=== PATIENT | female | born 1975 | race Caucasian/White ===

== ENCOUNTER 2017-06-07 13:51 | Emergency (ER) | payer OTHER ==
[2017-06-07] MEDS ORDERED: RX INFO: IV CONTRAST WAS GIVEN 1 EACH MISC MISCELLANE PRN (14:00)
[2017-06-07 14:02] LABS: Glucose,Whole Blood 100 mg/dL (75-99)
[2017-06-07 14:20] LABS: Basophils # (A) 0.1 k/uL (0-0.2); Basophils % (A) 0 %; CH 30.5; CHCM 34.7; Eosinophils # (A) 0.2 k/uL (0-0.7); Eosinophils % (A) 1 %; HCT 40.4 % (34.0-46.0); HDW 2.33; HGB 14.1 gm/dL (11.4-16.0); Luc # (Auto) 0.14; Luc % (Auto) 1; Lymphocytes # (A) 1.5 k/uL (1.0-4.8); Lymphocytes % (A) 13 %; MCH 30.9 pg (25.0-35.0); MCV 88.2 fL (80.0-100.0); Mean Platelet Volume 8.2; Monocytes # (A) 0.6 k/uL (0-1.0); Monocytes % (A) 5 %; Neutrophils # (A) 9.3 k/uL (1.3-7.7); Neutrophils % (A) 79 %; RBC 4.58 m/uL (3.80-5.40); RDW 12.5 % (11.5-15.5); WBC 11.8 k/uL (3.8-10.6); WBC (Perox) 11.76
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
[2017-06-07 14:28] LABS: INR 0.9 (<1.2); Prothrombin Time 9.6 sec (9.0-12.0)
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
[2017-06-07 14:32] LABS: ALT 31 U/L (9-52); AST 24 U/L (14-36); Alcohol <10 mg/dL; Alkaline Phosphatase 63 U/L (38-126); Amylase 39 U/L (30-110); Anion Gap 6 mmol/L; Blood Urea Nitrogen 9 mg/dL (7-17); Calcium 8.8 mg/dL (8.4-10.2); Carbon Dioxide 27 mmol/L (22-30); Chloride 105 mmol/L (98-107); Glucose 93 mg/dL (74-99); Non-African American GFR(MDRD) >60 (>60 ml/min/1.73 sqM); Potassium 4.1 mmol/L (3.5-5.1); Sodium 138 mmol/L (137-145); Total Bilirubin 0.2 mg/dL (0.2-1.3); Total Protein 6.1 g/dL (6.3-8.2)
[2017-06-07 14:35] LABS: Partial Thromboplastin Time 20.1 sec (22.0-30.0)
[2017-06-07] MEDS ORDERED: HYDROmorphone 1 MG/ML 1 ML SYRINGE IVP STA (14:35)
[2017-06-07 14:43] LABS: Creatine Kinase 83 U/L (30-135)
[2017-06-07 14:48] LABS: Appearance,Urine Clear (Clear); Bilirubin,Urine Negative (Negative); Glucose,Urine (UA) Negative (Negative); Ketones,Urine Negative (Negative); Leukocyte Esterase,Urine Negative (Negative); Nitrite,Urine Negative (Negative); Protein,Urine Negative (Negative); Specific Gravity,Urine 1.006 (1.001-1.035); UA Billing (MACRO vs. MICRO) CHEM; Urobilinogen,Urine <2.0 mg/dL (<2.0)
[2017-06-07 14:57] LABS: Creatine Kinase MB 2.1 ng/mL (0.0-2.4); Troponin I <0.012 ng/mL (0.000-0.034)
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
[2017-06-07] MEDS ORDERED: DIAZEPAM 5 MG/ML 2 ML SYRINGE IVP STA (16:00)
[2017-06-07 16:07] VITALS: BP 107/62; PULSE 83; RESP 16
== END 2017-06-07 17:39 | disposition home or self-care (01) ==
LOC: SUPCPDRO 13:51 → EC 13:51
DX: S71.132A Puncture wound without foreign body, left thigh, initial encounter (principal); S09.90XA Unspecified injury of head, initial encounter; M19.90 Unspecified osteoarthritis, unspecified site; F32.9 Major depressive disorder, single episode, unspecified; F41.9 Anxiety disorder, unspecified; F17.200 Nicotine dependence, unspecified, uncomplicated; Z79.899 Other long term (current) drug therapy; Z88.6 Allergy status to analgesic agent; Z88.8 Allergy status to other drugs, medicaments and biological substances; V86.59XA Driver of other special all-terrain or other off-road motor vehicle injured in nontraffic accident, initial encounter
CPT/HCPCS: 36415; 93005; 86900; 86901; 80053; 82150; 82550; 82553; 83605; 83690; 84484; 85025; 85610; 85730; 86850; 81003; 81025; 80306; 80320; 71010; 72170; 72125; 70450; 71260; 74177; 73701; 99285; 12002; 96374; 96375; J3360; J1170; Q9967

== ENCOUNTER → 2019-07-31 | Outpatient (CLI) | payer OTHER ==
--- NOTE | 2019-08-01 16:47 | CT ---
EXAMINATION TYPE: CT abdomen pelvis w con DATE OF EXAM: 07/31/2019 COMPARISON: 06/07/2017 HISTORY: Abdominal pain CT DLP: 499.3 mGycm Automated exposure control for dose reduction was used. TECHNIQUE: Helical acquisition of images was performed from the lung bases through the pelvis. CONTRAST: Performed with Oral Contrast and with IV Contrast, patient injected with 100 mL of Isovue 300. FINDINGS: There is a patchy nodular infiltrate in the right lower lobe. Superior extent of the infiltrate is no t demonstrated. Left lung bases clear. There is no pleural effusion. There is mild hiatal hernia. The re is no pericardial effusion. Liver and spleen appear normal. Bile ducts are not dilated. There is no pancreatic mass. Gallbladder appears normal. There is no adrenal mass. Kidneys show satisfactory contrast opacification. There is no hydronephrosis. Bladder distends smoothly. There is no inguinal hernia. Uterus is anteverted. Ther e is no free fluid in the pelvis. There is no evidence of a bowel obstruction. There is no intestinal wall thickening. Lumbar vertebra have normal spacing and alignment. There is no compression fracture. Bony pelvis appe ars normal. Hip joint spaces are normal. There is no mesenteric edema. There is no ascites or free ai r. Appendix is not seen. There is no sign of thickened appendix. There is apparent surgical clip rela kasandra to appendectomy. IMPRESSION: THERE IS MODERATE PATCHY NODULAR INFILTRATE RIGHT LOWER LOBE LIKELY RELATED TO INFLAMMATORY DISEASE T HAT IS A CHANGE COMPARED TO OLD EXAM. NO ACUTE ABNORMALITY WITHIN THE ABDOMEN PELVIS.
== END ==
LOC: RADCTMAIN 09:16
PROVIDERS: ATTEND Family Medicine
DX: R10.84 Generalized abdominal pain (principal); R10.2 Pelvic and perineal pain; R91.8 Other nonspecific abnormal finding of lung field
CPT/HCPCS: 74177; Q9967 ×2

== ENCOUNTER 2020-08-16 09:38 | Day surgery (SDC) | payer OTHER ==
[2020-08-11 14:54] VITALS: BMI 28.6
[~2020-08-16 09:38] MED LIST: LACTATED RINGERS 1,000 ML IV SCH; LIDOCAINE 1% (10MG/ML) FOR IV START INTRADERMA PRN
[2020-08-16 10:17] VITALS: RESP 16; TEMP 97.4
[2020-08-16] MEDS ORDERED: PROPOFOL 10 MG/ML 20 ML VIAL IV ONE (10:31)
--- NOTE | 2020-08-16 10:43 | P.PCN ---
Date of Procedure: 08/16/20 Procedure(s) Performed: BRIEF HISTORY: Patient is a 45-year-old, pleasant, white female scheduled for evaluation of GERD and Bee's esophagus. Her last upper endoscopy was done 3 years ago at [facility]. She is maintained on Prilosec and famotidine for her reflux symptoms PROCEDURE PERFORMED: Esophagogastroduodenoscopy with biopsy. PREOPERATIVE DIAGNOSIS: GERD /Bee's esophagus. IV sedation per anesthesia. PROCEDURE: After informed consent was obtained, the patient was brought into the endoscopy unit. IV sedation was administered by Anesthesia under continuous monitoring. Initially the Olympus GIF-140 video endoscope was inserted into the mouth. Esophagus intubated without any difficulty. It was gradually advanced into the stomach and duodenum and carefully examined. The bulb and the second part of the duodenum appeared normal. The scope at this time was withdrawn to the stomach, adequately insufflated with air, and upon careful examination, mucosa of the antrum, body, cardia and the fundus appeared normal. The scope was then withdrawn into the esophagus. Moderate size hiatal hernia noted. The The GE junction was located at 34 cm from the incisors. There was a 1 cm of Bee's appearing mucosa extending across the GE junction was biopsied. The rest of the esophagus appeared normal. There were no erosions or ulcerations seen and the patient tolerated the procedure well. IMPRESSION: 1. 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 2. Moderate size hiatal hernia. RECOMMENDATIONS: The findings of this examination were discussed with the patient as well as a family. She was advised to follow with the biopsy results. She will continue with omeprazole 20 mg daily and Pepcid at bedtime. If the biopsy is Bee's esophagus he can have a repeat upper endoscopy in 2-3.
[2020-08-16 11:12] VITALS: BP 121/77; PULSE 81
== END 2020-08-16 11:25 | disposition home or self-care (01) ==
LOC: ORWHC2ENDO 09:38
PROVIDERS: ATTEND Internal Medicine Gastroenterology
DX: K21.00 Gastro-esophageal reflux disease with esophagitis, without bleeding (principal); K44.9 Diaphragmatic hernia without obstruction or gangrene; K22.70 Barrett's esophagus without dysplasia; Z79.899 Other long term (current) drug therapy; E78.5 Hyperlipidemia, unspecified; F17.210 Nicotine dependence, cigarettes, uncomplicated; Z79.891 Long term (current) use of opiate analgesic; Z98.51 Tubal ligation status; Z98.890 Other specified postprocedural states; Z97.2 Presence of dental prosthetic device (complete) (partial); Z88.6 Allergy status to analgesic agent; Z88.8 Allergy status to other drugs, medicaments and biological substances
CPT/HCPCS: 81025; 88305; 43239; J2704

== ENCOUNTER 2021-01-20 16:01 | Emergency (ER) | payer OTHER ==
[2021-01-20 16:13] VITALS: BP 100/62; PULSE 89; RESP 17; TEMP 98
--- NOTE | 2021-01-20 16:51 | ED ---
Lower Extremity Injury HPI - General Chief Complaint: Extremity Injury, Lower Stated Complaint: RT foot pain (fall) Time Seen by Provider: 01/20/21 16:16 Source: patient, family, RN notes reviewed Mode of arrival: ambulatory Limitations: no limitations - History of Present Illness Initial Comments: This a 45-year-old female presents emergency Department with chief complaint of right foot pain. Patient states that she fever off-and-on 60 days ago but states that she twisted it today. Patient complains of distal foot pain. Patient states he is mild redness and swelling. Denies any fevers or chills. No complaints paresthesias no other complaints this time. - Related Data Home Medications Medication Instructions Recorded Confirmed traMADol HCl [Ultram] 50 mg PO TID 06/07/17 08/16/20 Ergocalciferol [Vitamin D2] 50,000 unit PO SA 08/11/20 08/16/20 Famotidine 20 mg PO DAILY 08/11/20 08/16/20 Multivitamins, Thera [Multivitamin 1 tab PO DAILY 08/11/20 08/16/20 (formulary)] Omeprazole 40 mg PO BID 08/11/20 08/16/20 Pravastatin Sodium 80 mg PO DAILY 08/11/20 08/16/20 Pregabalin [Lyrica] 200 mg PO TID 08/11/20 08/16/20 Previous Rx's Medication Instructions Recorded Cephalexin [Keflex] 500 mg PO Q6HR #28 cap 01/20/21 Allergies Allergy/AdvReac Type Severity Reaction Status Date / Time clonazepam [From Klonopin] Allergy Unknown Verified 01/20/21 16:13 diphenhydramine HCl Allergy Rash/Hives Verified 01/20/21 16:13 [From Benadryl] shellfish derived [Shellfish] Allergy Anaphylaxis Verified 01/20/21 16:21 ibuprofen AdvReac Unknown Verified 01/20/21 16:13 Review of Systems ROS Statement: Those systems with pertinent positive or pertinent negative responses have been documented in the HPI. ROS Other: All systems not noted in ROS Statement are negative. 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 Had heart monitoring/stress test October 2018 everyhting ok." History of Any Multi-Drug Resistant Organisms: MRSA Date of last positivie culture/infection: arms 2009 Past Surgical History: Tubal Ligation Additional Past Surgical History / Comment(s): LEEP Procedure, EGD. Past Anesthesia/Blood Transfusion Reactions: Motion Sickness Past Psychological History: Anxiety, Depression Smoking Status: Current every day smoker Past Alcohol Use History: Rare Past Drug Use History: None Reported - Past Family History Sister(s) Family Medical History: Deep Vein Thrombosis (DVT) General Exam Limitations: no limitations General appearance: alert, in no apparent distress Head exam: Present: atraumatic, normocephalic, normal inspection Eye exam: Present: normal appearance, PERRL, EOMI. Absent: scleral icterus, conjunctival injection, periorbital swelling Neck exam: Present: normal inspection. Absent: tenderness, meningismus, lymphadenopathy Respiratory exam: Present: normal lung sounds bilaterally. Absent: respiratory distress, wheezes, rales, rhonchi, stridor Cardiovascular Exam: Present: regular rate, normal rhythm, normal heart sounds. Absent: systolic murmur, diastolic murmur, rubs, gallop, clicks Extremities exam: Present: other (Right foot there is moderate swelling distal portion, mild erythema no increase in warmth pedal pulses equal bilaterally moderate tenderness) Skin exam: Present: warm, dry, intact, normal color. Absent: rash Course Vital Signs 01/20/21 16:04 Temperature 98.0 F Pulse Rate 89 Respiratory 17 Rate Blood Pressure 100/62 O2 Sat by Pulse 98 Oximetry Medical Decision Making - Medical Decision Making X-rays are negative for acute fracture. There is some erythema in the wound patient started with. There is slight concern for infection patient will placed on antibiotics discharged in stable condition return parameters discussed. Disposition Clinical Impression: Right foot sprain, Cellulitis of right foot Disposition: HOME SELF-CARE Condition: Stable Instructions (If sedation given, give patient instructions): Foot Sprain (ED) Additional Instructions: Please return to the Emergency Department if symptoms worsen or any other concerns. Prescriptions: Cephalexin [Keflex] 500 mg PO Q6HR #28 cap Is patient prescribed a controlled substance at d/c from ED?: No Referrals: Munir Martin MD [Primary Care Provider] - 1-2 days Time of Disposition: 17:11
--- NOTE | 2021-01-20 17:07 | XR ---
Result: History: Pain. Comparison: None available. Technique: 3 views of the right foot. Findings: The bone mineralization is appropriate for age. There is suboptimal exposure of the AP view. No acute fracture or dislocation is seen. The visualize d osseous structures are in anatomic alignment. The joint spaces are preserved. Impression: No acute osseous abnormality within the limitations of the study.
[2021-01-20] MEDS ORDERED: ACET/COD 300 MG/30 MG STARTER PACK 6 TAB BTL PO STA (17:11)
== END 2021-01-20 17:35 | disposition home or self-care (01) ==
LOC: EC 16:01
DX: S93.601A Unspecified sprain of right foot, initial encounter (principal); L03.115 Cellulitis of right lower limb; F17.200 Nicotine dependence, unspecified, uncomplicated; F41.9 Anxiety disorder, unspecified; F32.9 Major depressive disorder, single episode, unspecified; E78.5 Hyperlipidemia, unspecified; M19.90 Unspecified osteoarthritis, unspecified site; X50.1XXA Overexertion from prolonged static or awkward postures, initial encounter
CPT/HCPCS: 99284